=== PATIENT | female | born 1985 | race African-American/Black ===

== ENCOUNTER 2017-05-01 11:02 | Emergency (ER) | payer SELFPAY ==
[2017-05-01 12:06] LABS: #Lymphocytes 1.6 thou/uL (1.20-3.40); #Monocytes 0.6 thou/uL (0.11-0.59); #Neutrophils 8.9 thou/uL (1.40-6.50); %Basophils 0.4 % (0.0-1.0); %Eosinophils 0.1 % (0.0-10.0); %Lymphocytes 14.2 % (21.0-51.0); Hematocrit 49.7 % (36.0-47.0); White Blood Cell (WBC) Count 11.1 thou/uL (4.8-10.8)
[2017-05-01 12:19] LABS: ALT (SGPT) 22 U/L (8-55); AST (SGOT) 20 U/L (5-34); Alkaline Phosphatase 91 U/L (40-150); Anion Gap 18 mmol/L (10-20); BUN (Urea Nitrogen) 9 mg/dL (7.0-18.7); Bilirubin, Total 0.6 mg/dL (0.2-1.2); Calc. Creatinine Clearance 0 mL/min (70-130); Calcium 9.9 mg/dL (7.8-10.44); Carbon Dioxide 20 mmol/L (22-29); Chloride 100 mmol/L (98-107); Estimated GFR-MDRD 90; Globulin 4.4 g/dL (2.4-3.5); Lipase 12 U/L (8-78); Protein, Total 9.2 g/dL (6.0-8.3)
[2017-05-01] MEDS ORDERED: Pantoprazole 40 MG VIAL ONE (12:44)
[2017-05-01] MEDS ORDERED: Ondansetron HCl/PF 4 MG/2 ML Vial ONE (12:45)
[2017-05-01 12:54] LABS: Bilirubin Small (Negative); Blood, Urine Moderate (Negative); Glucose, Urine (Dipstick) Negative (Negative); Ketone, Urine 40 mg/dL (Negative); Nitrite Negative (Negative); Protein, Urine (Dipstick) 300 mg/dL (Neg-Trace); Urobilinogen 0.2 mg/dL (0.2-1.0)
[2017-05-01 12:56] LABS: Bacteria/HPF 1+ HPF (None Seen); Squamous Epithelial 21-50 HPF (0-3); WBC/HPF 21-50 HPF (0-3)
[2017-05-01 13:15] LABS: Hyaline Casts/LPF 0-3 HYALINE CAST LPF (0-3 Hyaline); Sperm/HPF 1+ HPF (None Seen)
[2017-05-01] MEDS ORDERED: Lidocaine 2% Viscous Solution 20 ML, Aluminum & Magnesium Hydroxide 30 ML, Donnatal Eli... SSW SCH ×3 (15:00)
== END 2017-05-01 15:21 | disposition home or self-care (01) ==
LOC: ERS 11:02
DX: K92.2 Gastrointestinal hemorrhage, unspecified (principal); K21.9 Gastro-esophageal reflux disease without esophagitis; I10 Essential (primary) hypertension; F31.9 Bipolar disorder, unspecified; F41.9 Anxiety disorder, unspecified; F20.9 Schizophrenia, unspecified; F17.210 Nicotine dependence, cigarettes, uncomplicated
CPT/HCPCS: 36415; 80053; 81003; 81015; 81025; 83690; 85025; 96361; 96374; 96375; C9113; J2405

== ENCOUNTER 2017-05-31 08:53 | Emergency (ER) | payer SELFPAY ==
[2017-05-31] MEDS ORDERED: Morphine 4 MG/ML VIAL ONE (09:42)
[2017-05-31] MEDS ORDERED: Labetalol HCl 100 MG/20 ML VIAL ONE (09:43)
[2017-05-31 09:58] LABS: #Basophils 0.1 thou/uL (0.0-0.2); #Eosinphils 0.1 thou/uL (0.0-0.7); #Lymphocytes 2.3 thou/uL (1.20-3.40); #Monocytes 0.6 thou/uL (0.11-0.59); #Neutrophils 6.5 thou/uL (1.40-6.50); %Basophils 1.3 % (0.0-1.0); %Eosinophils 0.5 % (0.0-10.0); %Lymphocytes 23.6 % (21.0-51.0); %Monocytes 5.9 % (0.0-10.0); Hematocrit 52.8 % (36.0-47.0); Mean Platelet Volume 9.2 fL (7.4-10.4); Red Blood Cell (RBC) Count 5.77 mill/uL (4.20-5.40); White Blood Cell (WBC) Count 9.5 thou/uL (4.8-10.8)
[2017-05-31 10:36] LABS: ALT (SGPT) 15 U/L (8-55); AST (SGOT) 16 U/L (5-34); Alkaline Phosphatase 70 U/L (40-150); BUN (Urea Nitrogen) 13 mg/dL (7.0-18.7); Bilirubin, Total 0.5 mg/dL (0.2-1.2); CK (CPK) 223 U/L (29-168); Calc. Creatinine Clearance 0 mL/min (70-130); Calcium 9.6 mg/dL (7.8-10.44); Carbon Dioxide 20 mmol/L (22-29); Chloride 103 mmol/L (98-107); Estimated GFR-MDRD 86; Globulin 3.8 g/dL (2.4-3.5); Lipase 7 U/L (8-78); Protein, Total 8.1 g/dL (6.0-8.3); Troponin I Less than 0.010 ng/mL (< 0.028)
[2017-05-31] MEDS ORDERED: Ondansetron HCl/PF 4 MG/2 ML Vial ONE (10:40)
--- NOTE | 2017-05-31 10:44 | RAD ---
PORTABLE CHEST: History: Nausea, vomiting. FINDINGS: Lungs are clear. Heart and mediastinum unremarkable. IMPRESSION: No acute abnormality. POS: [facility]
[2017-05-31 10:49] LABS: Anion Gap 18 mmol/L (10-20)
== END 2017-05-31 13:52 | disposition home or self-care (01) ==
LOC: ERS 08:53
DX: R11.2 Nausea with vomiting, unspecified (principal); I10 Essential (primary) hypertension; K21.9 Gastro-esophageal reflux disease without esophagitis; F41.9 Anxiety disorder, unspecified; F31.9 Bipolar disorder, unspecified; F20.9 Schizophrenia, unspecified; F17.210 Nicotine dependence, cigarettes, uncomplicated
CPT/HCPCS: 36415; 71010; 80053; 82553; 83690; 84484; 84703; 85025; 93005; 94760; 96361; 96374; 96375; J2270; J2405

== ENCOUNTER 2017-08-07 11:00 | Emergency (ER) | payer SELFPAY ==
[2017-08-07 11:43] LABS: Bilirubin Negative (Negative); Blood, Urine Trace (Negative); Clarity CLOUDY (Clear); Glucose, Urine (Dipstick) Negative (Negative); Leukocyte Moderate (Negative); Nitrite Negative (Negative); Protein, Urine (Dipstick) 30 mg/dL (Neg-Trace); Specific Gravity, Urine 1.022 (1.002-1.036)
[2017-08-07 11:45] LABS: Bacteria/HPF Rare-Few HPF (None Seen); Hyaline Casts/LPF 7-10 HYALINE CAST LPF (0-3 Hyaline); RBC/HPF 0-3 HPF (0-3); WBC/HPF 21-50 HPF (0-3)
[2017-08-07 11:47] LABS: Pathc Cast-AUWi Flag 2.57 (0-2.49); Pregnancy Test - Urine (BHCG) Negative (Negative); Pregu Control Background? CLEAR/WHITE (CLR/WHITE); Pregu Control Bar Appear? YES (CONTROL BAR); Specific Gravity 1.022 (1.002-1.036); Yeast-AUWi Flag 25.7 (0-25.0)
[2017-08-07 11:56] LABS: Yeast-All Forms None Seen HPF (None Seen)
[2017-08-07 11:57] LABS: Manual Microscopic Reviewed? No Path Casts Seen
[2017-08-07 12:02] LABS: #Basophils 0.1 thou/uL (0.0-0.2); #Lymphocytes 1.9 thou/uL (1.20-3.40); #Monocytes 0.5 thou/uL (0.11-0.59); #Neutrophils 7.3 thou/uL (1.40-6.50); %Basophils 0.6 % (0.0-1.0); %Eosinophils 0.1 % (0.0-10.0); %Lymphocytes 19.5 % (21.0-51.0); %Monocytes 4.9 % (0.0-10.0); %Neutrophils 74.9 % (42.0-75.0); Hemoglobin 16.8 g/dL (12.0-16.0); Lymphocytes 23 % (21-51); MDiff Complete? YES; Mean Corpuscular HGB CONC 31.9 g/dL (32.0-36.0); Mean Platelet Volume 8.8 fL (7.4-10.4); Monocytes 1 % (0-10); Neutrophil 76 % (42-75); Platelet Count 170 thou/uL (130-400); RBC Distribution Width 13.5 % (11.5-14.5); RBC Morphology Normal; Red Blood Cell (RBC) Count 5.77 mill/uL (4.20-5.40); White Blood Cell (WBC) Count 9.8 thou/uL (4.8-10.8)
[2017-08-07 12:09] LABS: ALT (SGPT) 12 U/L (8-55); AST (SGOT) 16 U/L (5-34); Albumin 4.8 g/dL (3.5-5.0); Alkaline Phosphatase 79 U/L (40-150); Anion Gap 12 mmol/L (10-20); BUN (Urea Nitrogen) 15 mg/dL (7.0-18.7); Bilirubin, Total 0.7 mg/dL (0.2-1.2); Calc. Creatinine Clearance 0 mL/min (70-130); Calcium 10.2 mg/dL (7.8-10.44); Carbon Dioxide 23 mmol/L (22-29); Chloride 99 mmol/L (98-107); Estimated GFR-MDRD 73; Globulin 4.2 g/dL (2.4-3.5); Glucose 104 mg/dL (70-105); Lipase 18 U/L (8-78); Potassium 3.6 mmol/L (3.5-5.1); Sodium 130 mmol/L (136-145)
--- NOTE | 2017-08-07 14:05 | ULT ---
ULTRASOUND ABDOMEN LIMITED: (RIGHT UPPER QUADRANT) HISTORY: A 31-year-old female with right upper quadrant abdominal pain. FINDINGS: The gallbladder has normal wall thickness and has no evidence of gallstones or sludge. The hepatic e chogenicity is normal. The right kidney has normal echogenicity and has no hydronephrosis. The panc reas is visualized, although ultrasound is relatively insensitive for pancreatic pathology compared t o CT and MRI. There is no biliary dilation. The common duct caliber is 4 mm. IMPRESSION: Normal. deandre [] POS: [facility]
[2017-08-07] MEDS ORDERED: Lidocaine Viscous Sol 2% 15 ml UD Cup ONE (14:48)
[2017-08-07] MEDS ORDERED: Mag-Al 1200 mg/1200 mg/30 ML UDCUP ONE (14:48)
--- NOTE | 2017-08-23 15:12 | EKG ---
Test Reason : Blood Pressure : / mmHG Vent. Rate : 069 BPM Atrial Rate : 069 BPM P-R Int : 132 ms QRS Dur : 084 ms QT Int : 416 ms P-R-T Axes : 044 078 067 degrees QTc Int : 445 ms Normal sinus rhythm Normal ECG Confirmed by STACY DE LA TORRE ([id number]), editorial director ROHAN JACOBSON ([id number]) on 08/23/2017 3:12:20 PM Referred By: BRITT Confirmed By:STACY DE LA TORRE
== END 2017-08-07 14:56 | disposition home or self-care (01) ==
LOC: ERS 11:00
DX: R10.13 Epigastric pain (principal); F41.9 Anxiety disorder, unspecified; F31.9 Bipolar disorder, unspecified; F20.9 Schizophrenia, unspecified; F17.210 Nicotine dependence, cigarettes, uncomplicated; I10 Essential (primary) hypertension; K21.9 Gastro-esophageal reflux disease without esophagitis; Z79.899 Other long term (current) drug therapy
CPT/HCPCS: 36415; 76705; 80053; 81003; 81015; 81025; 83690; 85025; 93005; 96372

== ENCOUNTER 2017-08-29 19:58 | Emergency (ER) | payer SELFPAY ==
[2017-08-29 20:46] LABS: #Basophils 0.1 thou/uL (0.0-0.2); #Monocytes 1.7 thou/uL (0.11-0.59); #Neutrophils 9.5 thou/uL (1.40-6.50); %Basophils 0.8 % (0.0-1.0); %Eosinophils 0.2 % (0.0-10.0); %Lymphocytes 20.9 % (21.0-51.0); %Monocytes 11.7 % (0.0-10.0); %Neutrophils 66.4 % (42.0-75.0); Hemoglobin 16.4 g/dL (12.0-16.0); Mean Corpuscular HGB CONC 33.2 g/dL (32.0-36.0); Mean Corpuscular Hemoglobin 29.5 pg (27.0-31.0); Mean Corpuscular Volume 88.9 fl (81.0-99.0); Mean Platelet Volume 8.1 fL (7.4-10.4); Platelet Count 170 thou/uL (130-400); RBC Distribution Width 13.1 % (11.5-14.5); Red Blood Cell (RBC) Count 5.58 mill/uL (4.20-5.40); White Blood Cell (WBC) Count 14.3 thou/uL (4.8-10.8)
[2017-08-29 21:09] LABS: ALT (SGPT) 11 U/L (8-55); AST (SGOT) 13 U/L (5-34); Albumin 4.4 g/dL (3.5-5.0); Alkaline Phosphatase 74 U/L (40-150); Anion Gap 17 mmol/L (10-20); BUN (Urea Nitrogen) 7 mg/dL (7.0-18.7); Bilirubin, Total 0.7 mg/dL (0.2-1.2); Calc. Creatinine Clearance 0 mL/min (70-130); Calcium 10.3 mg/dL (7.8-10.44); Carbon Dioxide 20 mmol/L (22-29); Chloride 101 mmol/L (98-107); Estimated GFR-MDRD 75; Glucose 118 mg/dL (70-105); Lipase 13 U/L (8-78); Potassium 3.1 mmol/L (3.5-5.1); Protein, Total 8.4 g/dL (6.0-8.3); Sodium 135 mmol/L (136-145)
[2017-08-29 22:56] LABS: INR-International Normal Ratio 1.1
[2017-08-29 22:58] LABS: BHCG - Serum Negative (NEGATIVE); Pregs Control Background? CLEAR/WHITE (CLR/WHITE); Pregs Control Bar Appear? YES (CONTROL BAR)
[2017-08-29] MEDS ORDERED: cloNIDine 0.1 MG TAB ONE (23:49)
[2017-08-29] MEDS ORDERED: Ondansetron ODT 8 MG TAB ONE (23:49)
[2017-08-30] MEDS ORDERED: Potassium Chloride 20 MEQ TAB ONE (00:42)
[2017-08-30 00:58] LABS: Bilirubin Small (Negative); Blood, Urine Negative (Negative); Clarity TURBID (Clear); Glucose, Urine (Dipstick) Negative (Negative); Leukocyte Small (Negative); Nitrite Negative (Negative); Protein, Urine (Dipstick) 100 mg/dL (Neg-Trace); Specific Gravity, Urine 1.034 (1.002-1.036)
[2017-08-30 01:03] LABS: Bacteria/HPF Rare-Few HPF (None Seen); Squamous Epithelial 21-50 HPF (0-3)
[2017-08-30 01:07] LABS: Pathc Cast-AUWi Flag 14.63 (0-2.49); Yeast-AUWi Flag 38.2 (0-25.0)
[2017-08-30 01:11] LABS: Hyaline Casts/LPF NONE SEEN LPF (0-3 Hyaline); Yeast-All Forms None Seen HPF (None Seen)
[2017-08-30 01:12] LABS: Other Casts/LPF None Seen LPF (0-3 Hyaline); Renal Epithelial None Seen HPF (0-3); Transitional Epithelial NONE SEEN HPF (0-3)
== END 2017-08-30 01:10 | disposition home or self-care (01) ==
LOC: ERS 19:58
DX: E87.6 Hypokalemia (principal); K59.00 Constipation, unspecified; K21.9 Gastro-esophageal reflux disease without esophagitis; I10 Essential (primary) hypertension; F31.9 Bipolar disorder, unspecified; F20.9 Schizophrenia, unspecified; F17.210 Nicotine dependence, cigarettes, uncomplicated; Z79.899 Other long term (current) drug therapy
CPT/HCPCS: 36415; 80053; 81003; 81015; 83690; 84703; 85025; 85610; 99406

== ENCOUNTER 2017-11-19 11:32 | Emergency (ER) | payer SELFPAY ==
[2017-11-19 12:09] LABS: #Basophils 0.1 thou/uL (0.0-0.2); #Lymphocytes 1.6 thou/uL (1.20-3.40); #Monocytes 0.5 thou/uL (0.11-0.59); #Neutrophils 6.8 thou/uL (1.40-6.50); %Basophils 1.1 % (0.0-1.0); %Eosinophils 0.1 % (0.0-10.0); %Lymphocytes 17.9 % (21.0-51.0); %Monocytes 5.2 % (0.0-10.0); %Neutrophils 75.6 % (42.0-75.0); Hemoglobin 16.1 g/dL (12.0-16.0); Mean Corpuscular HGB CONC 31.4 g/dL (32.0-36.0); Mean Corpuscular Hemoglobin 28.8 pg (27.0-31.0); Mean Corpuscular Volume 91.7 fl (81.0-99.0); Mean Platelet Volume 8.1 fL (7.4-10.4); Platelet Count 154 thou/uL (130-400); RBC Distribution Width 12.3 % (11.5-14.5)
[2017-11-19] MEDS ORDERED: Promethazine HCl 25 MG/ML VIAL ONE ×2 (12:29→14:54)
[2017-11-19 12:32] LABS: BHCG - Serum Negative (NEGATIVE); Pregs Control Background? CLEAR/WHITE (CLR/WHITE); Pregs Control Bar Appear? YES (CONTROL BAR)
[2017-11-19 12:37] LABS: ALT (SGPT) 13 U/L (8-55); AST (SGOT) 16 U/L (5-34); Alkaline Phosphatase 72 U/L (40-150); Anion Gap 16 mmol/L (10-20); BUN (Urea Nitrogen) 9 mg/dL (7.0-18.7); Bilirubin, Total 0.6 mg/dL (0.2-1.2); Calc. Creatinine Clearance 0 mL/min (70-130); Calcium 9.9 mg/dL (7.8-10.44); Carbon Dioxide 19 mmol/L (22-29); Chloride 105 mmol/L (98-107); Estimated GFR-MDRD 80; Globulin 3.9 g/dL (2.4-3.5); Glucose 123 mg/dL (70-105); Lipase 17 U/L (8-78); Potassium 3.3 mmol/L (3.5-5.1); Protein, Total 8.9 g/dL (6.0-8.3); Sodium 137 mmol/L (136-145)
[2017-11-19 12:48] LABS: CKMB 1.1 ng/mL (0-6.6); Troponin I 0.014 ng/mL (< 0.028)
[2017-11-19 13:11] LABS: Bilirubin Negative (Negative); Blood, Urine Negative (Negative); Clarity TURBID (Clear); Glucose, Urine (Dipstick) Negative (Negative); Leukocyte Negative (Negative); Nitrite Negative (Negative); Protein, Urine (Dipstick) 100 mg/dL (Neg-Trace); Specific Gravity, Urine 1.015 (1.002-1.036)
[2017-11-19 13:12] LABS: Bacteria/HPF Rare-Few HPF (None Seen); Hyaline Casts/LPF 4-6 HYALINE CAST LPF (0-3 Hyaline); Pathc Cast-AUWi Flag 0.14 (0-2.49); RBC/HPF 0-3 HPF (0-3)
[2017-11-19 13:28] LABS: Amphetamine Not Detected (NotDetected); Barbiturates Screen Not Detected (NotDetected); Benzodiazepine Screen Not Detected (NotDetected); Cocaine Metabolite Screen Not Detected (NotDetected); Medtox Control Line Valid? VALID (VALID); Medtox Reader # READER 4; Methadone Not Detected (NotDetected); Methamphetamine Not Detected (NotDetected); Opiate Screen Not Detected (NotDetected); Oxycodone Screen Not Detected (NotDetected); Phencyclidine (PCP) Not Detected (NotDetected); THC/Cannabinoid Screen Not Detected (NotDetected); Tricyclic Screen Not Detected (NotDetected)
[2017-11-19 13:32] LABS: Crystals/HPF 2+ AMORPH PHOS HPF (Negative); Renal Epithelial None Seen HPF (0-3); Transitional Epithelial NONE SEEN HPF (0-3); WBC/HPF 0-3 HPF (0-3)
--- NOTE | 2017-11-19 13:52 | RAD ---
PORTABLE CHEST: Date: 11/19/17 HISTORY: Nausea and vomiting. FINDINGS: Lungs are clear. Heart and mediastinum unremarkable. IMPRESSION: No acute abnormality. POS: [facility]
[2017-11-19] MEDS ORDERED: Mag-Al 1200 mg/1200 mg/30 ML UDCUP ONE (14:54)
[2017-11-19] MEDS ORDERED: Ondansetron ODT 8 MG TAB ONE (14:54)
[2017-11-19] MEDS ORDERED: Lidocaine Viscous Sol 2% 15 ml UD Cup ONE (14:54)
== END 2017-11-19 16:47 | disposition home or self-care (01) ==
LOC: ERS 11:32
DX: E86.0 Dehydration (principal); R53.1 Weakness; R11.2 Nausea with vomiting, unspecified; I11.0 Hypertensive heart disease with heart failure; I50.9 Heart failure, unspecified; K21.9 Gastro-esophageal reflux disease without esophagitis; F17.210 Nicotine dependence, cigarettes, uncomplicated; Z79.899 Other long term (current) drug therapy
CPT/HCPCS: 36415; 71045; 80053; 80306; 81003; 81015; 82550; 82553; 83690; 83880; 84484; 84703; 85025; 86850; 86900; 86901; 93005; 96365; 96366; J2550

== ENCOUNTER 2017-12-07 23:13 | Inpatient (IN) | payer SELFPAY ==
[2017-12-07 23:29] LABS: #Basophils 0.1 thou/uL (0.0-0.2); #Eosinphils 0.2 thou/uL (0.0-0.7); #Lymphocytes 3.8 thou/uL (1.20-3.40); #Monocytes 0.7 thou/uL (0.11-0.59); #Neutrophils 3.2 thou/uL (1.40-6.50); %Basophils 1.2 % (0.0-1.0); %Eosinophils 2.2 % (0.0-10.0); %Lymphocytes 46.9 % (21.0-51.0); %Monocytes 9.1 % (0.0-10.0); %Neutrophils 40.5 % (42.0-75.0); Hemoglobin 15.1 g/dL (12.0-16.0); Mean Corpuscular HGB CONC 33.7 g/dL (32.0-36.0); Mean Corpuscular Hemoglobin 30.1 pg (27.0-31.0); Mean Corpuscular Volume 89.3 fL (78.0-98.0); Mean Platelet Volume 7.6 fL (7.4-10.4); Platelet Count 201 thou/uL (130-400); Red Blood Cell (RBC) Count 5.01 mill/uL (4.20-5.40)
[2017-12-07] MEDS ORDERED: Lidocaine Viscous Sol 2% 15 ml UD Cup ONE (23:39)
[2017-12-07] MEDS ORDERED: Milk Of Magnesia 30 ML UDCUP ONE (23:39)
[2017-12-07] MEDS ORDERED: Ondansetron ODT 4 MG TAB ONE (23:39)
[2017-12-07 23:50] LABS: ALT (SGPT) 12 U/L (8-55); AST (SGOT) 16 U/L (5-34); Albumin 4.8 g/dL (3.5-5.0); Alkaline Phosphatase 62 U/L (40-150); Anion Gap 15 mmol/L (10-20); BUN (Urea Nitrogen) 9 mg/dL (7.0-18.7); Bilirubin, Total 0.4 mg/dL (0.2-1.2); Calc. Creatinine Clearance 0 mL/min (70-130); Carbon Dioxide 22 mmol/L (22-29); Chloride 108 mmol/L (98-107); Estimated GFR-MDRD 68; Globulin 3.8 g/dL (2.4-3.5); Glucose 117 mg/dL (70-105); Protein, Total 8.6 g/dL (6.0-8.3); Sodium 142 mmol/L (136-145)
[2017-12-08] MEDS ORDERED: Promethazine HCl 25 MG/ML VIAL ONE (00:12)
[2017-12-08 00:15] LABS: Potassium 2.9 mmol/L (3.5-5.1)
[2017-12-08 01:12] LABS: Bilirubin Negative (Negative); Blood, Urine Large (Negative); Clarity CLEAR (Clear); Glucose, Urine (Dipstick) Negative (Negative); Leukocyte Negative (Negative); Nitrite Negative (Negative); Pregnancy Test - Urine (BHCG) Negative (Negative); Pregu Control Background? CLEAR/WHITE (CLR/WHITE); Pregu Control Bar Appear? YES (CONTROL BAR); Protein, Urine (Dipstick) Trace mg/dL (Neg-Trace); pH, Urine 7.5 (5.0-9.0)
[2017-12-08 01:16] LABS: Bacteria/HPF None Seen HPF (None Seen); Pathc Cast-AUWi Flag 0.72 (0-2.49); WBC/HPF 0-3 HPF (0-3)
[2017-12-08 01:26] LABS: Hyaline Casts/LPF NONE SEEN LPF (0-3 Hyaline); Renal Epithelial None Seen HPF (0-3); Transitional Epithelial NONE SEEN HPF (0-3)
[2017-12-08 02:05] LABS: Acetaminophen Less than 6.0 mcg/mL (10.0-30.0); Alcohol Less than 10 mg/dL (Less than 10); Salicylate Less than 8.0 mg/dL (15.0-30.0)
--- NOTE | 2017-12-08 02:23 | PDOC.FPRHP ---
- History of Present Illness Chief Complaint: N/V History of Present Illness: This i s a 31 yo AAF w/ PMH HTN, drug use, Pre-eclampsia, presents w/ N/V that started today. + abdominal pain that started after vomiting. + chills. She denies any fevers, changes in BM or urination. Pt refusing to answer more of her history. - Allergies/Adverse Reactions Allergies Allergy/AdvReac Type Severity Reaction Status Date / Time No Known Allergies Allergy Verified 06/23/16 06:47 - Home Medications Medication Instructions Recorded Confirmed Type Aspirin [Aspirin Chewable Tablet] 81 mg PO DAILY #0 tab 03/30/16 11/19/16 Rx Vit 10/Iron/Folic/Dha 1 tablet PO DAILY 03/30/16 11/19/16 History [Vitafol-OB+DHA Combo Pack] Labetalol [Normodyne] 400 mg PO BID 05/18/16 11/19/16 History Acetaminophen W/ Codeine 1 tab PO Q4H PRN #20 tab 06/27/16 11/19/16 Rx [Acetaminophen/Codeine #3] Ferrous Sulfate [Feosol] 325 mg PO BID #60 tab 06/27/16 11/19/16 Rx Hydrochlorothiazide 25 mg PO BID #60 tab 06/27/16 11/19/16 Rx Labetalol [Normodyne] 400 mg PO BID #60 tab 06/27/16 11/19/16 Rx - History PMHx: PSHx: FHx: Social: - Review of Systems General: reports: weight/appetite/sleep changes, other (+ chills, no fever) Eyes: denies: eye pain, vision changes ENT: denies: nasal congestion, rhinorrhea Respiratory: denies: cough, congestion, shortness of breath, exercise intolerance Cardiovascular: denies: chest pain, palpitation Gastrointestinal: reports: nausea, vomiting, abdominal pain, GI bleeding. denies: diarrhea, constipation Genitourinary: denies: dysuria Skin: denies: rashes - Vital signs BP: 178/113 HR: 84 RR: 12 Tmax: 97.5 Pox: 96% on RA Wt: 63kg - Physical Exam Constitutional: NAD, other (Thin, Selectively answering questions) HEENT: normocephalic and atraumatic, PERRLA, EOMI, conjunctiva clear, no scleral icterus, normal nasal mucosa, MMM, oropharynx clear Neck: no JVD Heart: RRR, normal S1/S2, no murmurs/rubs/gallops, no edema Lungs: CTAB, no respiratory distress, good air movement, no rales/rhonchi, no wheezing, no retractions Abdomen: soft, no masses/distention -Abdomen: Pt not allowing me to examine abdomen Musculoskeletal: normal structure, normal tone, ROM grossly normal Neurological: no focal deficit, CN II-XII intact, normal sensation Skin: no rash/lesions -Psychiatric: Pt declining to answer to most questions. Poor eye contact, smells of smoke FMR H&P: Results - Labs Result Diagrams: 12/07/17 23:20 12/07/17 23:20 Lab results: WBC 8.0 thou/uL (4.8-10.8) 12/07/17 23:20 Hgb 15.1 g/dL (12.0-16.0) 12/07/17 23:20 Hct 44.7 % (36.0-47.0) 12/07/17 23:20 MCV 89.3 fL (78.0-98.0) 12/07/17 23:20 Plt Count 201 thou/uL (130-400) 12/07/17 23:20 Neutrophils % 40.5 % (42.0-75.0) L 12/07/17 23:20 Sodium 142 mmol/L (136-145) 12/07/17 23:20 Potassium 2.9 mmol/L (3.5-5.1) L* 12/07/17 23:20 Chloride 108 mmol/L (98-107) H 12/07/17 23:20 Carbon Dioxide 22 mmol/L (22-29) 12/07/17 23:20 BUN 9 mg/dL (7.0-18.7) 12/07/17 23:20 Creatinine 1.13 mg/dL (0.6-1.1) H 12/07/17 23:20 Glucose 117 mg/dL (70-105) H 12/07/17 23:20 Calcium 10.0 mg/dL (7.8-10.44) 12/07/17 23:20 Total Bilirubin 0.4 mg/dL (0.2-1.2) 12/07/17 23:20 AST 16 U/L (5-34) 12/07/17 23:20 ALT 12 U/L (8-55) 12/07/17 23:20 Alkaline Phosphatase 62 U/L (40-150) 12/07/17 23:20 Serum Total Protein 8.6 g/dL (6.0-8.3) H 12/07/17 23:20 Albumin 4.8 g/dL (3.5-5.0) 12/07/17 23:20 Lipase 17 U/L (8-78) 12/07/17 23:20 Urine Ketones Trace mg/dL (Negative) H 12/08/17 01:00 Urine Blood Large (Negative) H 12/08/17 01:00 Urine Nitrite Negative (Negative) 12/08/17 01:00 Ur Leukocyte Esterase Negative (Negative) 12/08/17 01:00 Urine RBC 7-10 HPF (0-3) H 12/08/17 01:00 Urine WBC 0-3 HPF (0-3) 12/08/17 01:00 Ur Squamous Epith Cells 4-6 HPF (0-3) H 12/08/17 01:00 Urine Bacteria None Seen HPF (None Seen) 12/08/17 01:00 - Radiology Interpretation CT scan - abdomen Status: report reviewed by me (Can't exclude mild bronchiolitis. Small hiatal hernia and mild wall thickening in distal esopahgus. 2cm R ovarin cyst) FMR H&P: A/P - Problem List (1) SHANNAN (acute kidney injury) Current Visit: No Status: Acute Code(s): N17.9 - ACUTE KIDNEY FAILURE, UNSPECIFIED Assessment and Plan: Fluids. F/u with BMP in am. (2) Hypertensive urgency Current Visit: No Status: Acute Code(s): I10 - ESSENTIAL (PRIMARY) HYPERTENSION Assessment and Plan: Pt has hx of HTN. Will check UDS and add hydralazine PRN. If UDS will restart home medications. Will check TSH. (3) Hypokalemia Current Visit: No Status: Acute Code(s): E87.6 - HYPOKALEMIA Assessment and Plan: S/p K-dur in ER. Will start fluids with Potassium. Will also check Mag. F/u with repeat K in am. (4) Medical non-compliance Current Visit: No Status: Chronic Code(s): Z91.19 - PATIENT'S NONCOMPLIANCE W OTH MEDICAL TREATMENT AND REGIMEN (5) Tobacco abuse Current Visit: No Status: Chronic Code(s): Z72.0 - TOBACCO USE Assessment and Plan: Counselled on cessation. (6) Intractable nausea and vomiting Current Visit: Yes Status: Acute Code(s): R11.2 - NAUSEA WITH VOMITING, UNSPECIFIED Assessment and Plan: Zofran PRN. Fluids. NPO. Will check UA and cx. Start PPI and consider GI cocktail. (7) Ovarian cyst Current Visit: Yes Status: Chronic Code(s): N83.209 - UNSPECIFIED OVARIAN CYST, UNSPECIFIED SIDE Assessment and Plan: Incidently found on CT scan. F/u outpatient FMR H&P: Upper Level - Plan Date/Time: 12/08/17 0220 I, [], have evaluated this patient and agree with findings/plan as outlined by international sales representative resident. Pertinent changes/additions are listed here.
[2017-12-08] MEDS ORDERED: D5 1/2 NS w/20 mEq KCL 1,000 ML IV SCH ×2 (03:15→04:37)
[2017-12-08] MEDS ORDERED: hydrALAZINE 20 MG/ML VIAL SLOW IVP PRN (04:37)
[2017-12-08] MEDS ORDERED: Promethazine HCl 25 MG/ML VIAL SLOW IVP PRN (04:37)
[2017-12-08] MEDS ORDERED: Ondansetron ODT 4 MG TAB PO PRN (04:37)
[2017-12-08] MEDS ORDERED: Ondansetron HCl/PF 4 MG/2 ML Vial IVP PRN ×2 (04:37)
[2017-12-08] MEDS ORDERED: Ondansetron ODT 4 MG TAB SL PRN (04:37)
[2017-12-08 04:55] VITALS: BMI 22.0
[2017-12-08 05:20] LABS: Amphetamine Detected (NotDetected); Barbiturates Screen Not Detected (NotDetected); Benzodiazepine Screen Not Detected (NotDetected); Cocaine Metabolite Screen Not Detected (NotDetected); Medtox Control Line Valid? VALID (VALID); Medtox Reader # READER 1; Methadone Not Detected (NotDetected); Methamphetamine Not Detected (NotDetected); Opiate Screen Not Detected (NotDetected); Oxycodone Screen Not Detected (NotDetected); Phencyclidine (PCP) Not Detected (NotDetected); THC/Cannabinoid Screen Not Detected (NotDetected); Tricyclic Screen Not Detected (NotDetected)
[2017-12-08] MEDS ORDERED: Potassium Chloride 20 MEQ TAB PO SCH ×2 (08:00)
[2017-12-08] MEDS ORDERED: Pantoprazole 40 MG VIAL IVP SCH (09:00)
[2017-12-08] MEDS ORDERED: Hydrochlorothiazide 25 MG TAB PO SCH (09:00)
--- NOTE | 2017-12-08 09:13 | CT ---
PRELIMINARY REPORT/[facility]/EMERGENTY AFTER-HOURS PROCEDURE CT Abdomen and Pelvis With Intravenous Contrast CLINICAL HISTORY: 31 years old, female; Pain; Abdominal pain; Generalized; Patient HX: 31/f PT presents with complaint of nausea, vomiting, and epigastric abdominal pain starting earlier tonight. No fever, body aches, ch ills, diarrhea, chest pain, or shortness of breath. States this feels like her prior episodes of reflux. Was in the er recently for same complaint TECHNIQUE: Axial computed tomography images of the abdomen and pelvis with intravenous contrast. Coronal reforma tted images were created and reviewed. COMPARISON: No relevant prior studies available. FINDINGS: Lower thorax: There may be subtle tree in bud opacities of the left lower lobe, cannot exclude mild b ronchiolitis. There is a small hiatal hernia and there is mild wall thickening in the distal esophagu s, cannot exclude distal esophagitis. ABDOMEN: Liver: There is mild hepatomegaly. Gallbladder and bile ducts: Normal. No calcified stones. No ductal dilation. Pancreas: Normal. No ductal dilation. Spleen: Normal. No splenomegaly. Adrenals: Normal. No mass. Kidneys and ureters: Normal. No hydronephrosis. Stomach and bowel: Normal. No obstruction. No mucosal thickening. Appendix: The appendix is unremarkable and seen best on axial image 54 of series 2. PELVIS: Bladder: Unremarkable as visualized. Reproductive: There is a 2.0 cm right ovarian cyst. ABDOMEN and PELVIS: Intraperitoneal space: Normal. No free air. No significant fluid collection. Bones/joints: No acute fracture. No dislocation. Soft tissues: Unremarkable. Vasculature: Normal. No abdominal aortic aneurysm. Lymph nodes: Normal. No enlarged lymph nodes. IMPRESSION: 1. There may be subtle tree in bud opacities of the left lower lobe, cannot exclude mild bronchioliti s. 2. There is a small hiatal hernia and there is mild wall thickening in the distal esophagus, cannot e xclude distal esophagitis. 3. There is a 2.0 cm right ovarian cyst. Thank you for allowing us to participate in the care of your patient. Dictated and Authenticated by: Marcial Stone MD 12/08/2017 1:24 AM Central Time ([place] & [place]) FINAL REPORT EMERGENT AFTER HOURS CT ABDOMEN AND PELVIS: COMPARISON: 06/25/16. FINDINGS/IMPRESSION: I agree with the findings and impression given in the preliminary report per [facility] physician. 1. No evidence of acute intraabdominal/pelvic abnormality. 2. There may be a small hiatal hernia. 3. There is a tampon in the vagina. A right ovarian cyst is seen which is likely physiologic. 4. The tree-in-bud opacities mentioned in the right lower lobe are very subtle and stable and likely represent scarring rather than an infectious process. POS: [facility]
[2017-12-08] MEDS ORDERED: Amlodipine 5 MG TAB PO SCH ×2 (10:27→10:45)
[2017-12-08 11:39] VITALS: BP 154/90; TEMP 98.9
[2017-12-08] MEDS ORDERED: Calcium Carbonate 500 MG ChewTAB PO PRN (12:11)
[2017-12-08 12:16] LABS: Anion Gap 17 mmol/L (10-20); BUN (Urea Nitrogen) 7 mg/dL (7.0-18.7); Calc. Creatinine Clearance 84 mL/min (70-130); Calcium 9.6 mg/dL (7.8-10.44); Carbon Dioxide 20 mmol/L (22-29); Chloride 106 mmol/L (98-107); Estimated GFR-MDRD 89; Glucose 121 mg/dL (70-105); Potassium 3.6 mmol/L (3.5-5.1); Sodium 139 mmol/L (136-145)
[2017-12-09] MEDS ORDERED: Amlodipine 5 MG TAB PO SCH (09:00)
[2017-12-09] MEDS ORDERED: Hydrochlorothiazide 25 MG TAB PO SCH (09:00)
--- NOTE | 2017-12-09 17:56 | ADD-HP ---
ADDENDUM Please see the note from Dr. Munguia for which I agree. The patient was seen and examined and discussed with the residents by bedside. HISTORY OF PRESENT ILLNESS: A 31-year-old female apparently well known to this serv ice with history of hypertension, drug use, and just medical noncompliance, who came in with nausea, vomiting, intractable and blood pressure urgently high. Initial ER visit controlled her blood pressu re and was noted to be hypokalemic. CT was done and was basically normal. LABORATORY AND X-RAY FINDINGS: Initial blood workup significant for the low potassium 2.9. Urine dr ug screen positive for amphetamines. PAST MEDICAL HISTORY: All per the history and physical for which I concur. PAST SURGICAL HISTORY: All per the history and physical for which I concur. MEDICATIONS: All per the history and physical for which I concur. SOCIAL HISTORY: All per the history and physical for which I concur. REVIEW OF SYSTEMS: All per the history and physical for which I concur. PHYSICAL EXAMINATION: VITAL SIGNS: Blood pressure has come down 142/85. GENERAL: No distress in the room, pleasant. States she feels better. Alert and oriented x3. ENT: Otherwise within normal limits. NECK: No JVD, lymphadenopathy, or bruits. CHEST: Clear. CARDIOVASCULAR: Regular rate and rhythm. ABDOMEN: Benign. EXTREMITIES: Show no edema. LABORATORY DATA: Reviewed. Again same way for the low potassium. ASSESSMENT AND PLAN: 1. Urgent hypertension -- medical noncompliance. We will get her back on medicines. Hopefully, we can choose the one that she will be able to afford and stay on compliantly. 2. Amphetamine abuse, likely obviously counseled. 3. Hypokalemia, , we will recheck basic metabolic panel and see what her levels are showing. 4. Intractable nausea and vomiting, now improved. We will slowly see, put her on proton pump inhibi tor, but likely will be able to be discharged once she keep p.o. fluids down.
--- NOTE | 2017-12-10 03:26 | DIS-2 ---
DATE OF ADMISSION: 12/08/2017 DATE OF DISCHARGE: 12/08/2017 RESIDENT: Julio César Bennett MD ADMITTING ATTENDING: Joe Tovar MD DISCHARGE ATTENDING: Joe Tovar MD CONSULTATION: None. PROCEDURES: CT abdomen and pelvis with contrast showed no acute intra- abdominal or pelvic abnormality. Small hiatal hernia present. Right ovarian cyst, likely physiologic. A subtle, likely scarring in the right lower lobe. PRIMARY DIAGNOSIS: Hypertensive urgency. SECONDARY DIAGNOSES: 1. Intractable nausea and vomiting. 2. Acute kidney injury. 3. Hypokalemia. 4. Amphetamine abuse. 5. Tobacco abuse. 6. Medical noncompliance. DISCHARGE MEDICATIONS: 1. Amlodipine 2.5 mg daily. 2. Protonix 20 mg daily. 3. Potassium chloride 10 mEq daily. 4. Hydrochlorothiazide 25 mg daily. 5. Zofran 4 mg q.6 hours p.r.n. DISCONTINUED MEDICATION: Labetalol 400 mg b.i.d. HISTORY OF PRESENT ILLNESS AND HOSPITAL COURSE: The patient is a 31-year-old -[place] female with past medical history of hypertension, drug abuse, medication noncompliance, and preeclampsia presented with nausea and vomiting, not acutely worsened on the day of presentation to the ED. The patient's history was limited due to lack of cooperation on admission, but she endorsed abdominal pain that started after vomiting along with chills. Denied any fever , changes of bowel movement, or complaints with urination. On further questioning, she endorses chronic nausea with eating and a significant amount of vomiting. She mostly visits ED for management and has not been seen in our clinic since 06/2016. She is not currently taking any of her medications due to being unable to afford. She denied any drug use, but states her roommate was smoking "ice", which was likely affecting her. She was writhing around on the bed during the initial evaluation and very uncomfortable. Next morning, she was much more calm. She was brought in for observation. 1. Hypertensive urgency. The patient had no signs of end-organ damage with mild SHANNAN attributed to more of her overall fluid status with vomiting. UDS was positive for amphetamines. Her blood pressures were improved after the addition of oral agents. The patient was on labetalol and HCTZ, but was last addressed around at the time of . Due to the cost of labetalol, she is unable to afford. She was changed to amlodipine 2.5 mg, which is on the 4- dollar list, as well as continued on HCTZ once daily. 2. Intractable nausea and vomiting. This is likely the patient's biggest chronic issue per history. However, the patient has difficulty affording medications and may also be linked to drug use and/or peptic ulcer disease. GI cocktail was given and a PPI was started. The patient was able to tolerate food without vomiting in the hospital, so she was felt stable for discharge. We will send her home with a script for Zofran and Protonix. The patient is asked to follow up in our clinic. 3. Acute kidney injury, improved with IV fluids. Likely secondary to vomiting. 4. Hypokalemia. The patient was given potassium in the ED and on the floor. Repeat potassium was in a normal range. She was discharged with a script for potassium supplements. 5. Amphetamine abuse. The patient's UDS was positive for amphetamines. The patient endorsed having a roommate, who used methamphetamines around her, but denied personal use. Counseled that drug use can worsen her current symptoms. 6. Tobacco abuse, counseled on cessation. 7. Medical noncompliance. The patient has been difficult to manage at times due to this. Currently, able to afford all of her medications. Blood pressure meds were adjusted with gaines in mind and convenience of dosing. 8. Low TSH. The patient was found to have a low TSH that came back just after the patient was discharged. I contacted her to stress the importance of a followup visit at our clinic to further evaluate. DISPOSITION: Stable. DISCHARGE INSTRUCTIONS: 1. Location: Home. 2. Diet: Heart healthy. 3. Activity: As tolerated. 4. Follow up with [facility] in 3-5 days. JACKELYN
== END 2017-12-08 14:43 | disposition home or self-care (01) | DRG 641 ==
LOC: ERS 23:13 → 2SW 12-08 01:47
PROVIDERS: ADMIT Family Medicine; ATTEND Family Medicine
DX: E87.6 Hypokalemia (principal); N17.9 Acute kidney failure, unspecified; I16.0 Hypertensive urgency; F15.10 Other stimulant abuse, uncomplicated; K44.9 Diaphragmatic hernia without obstruction or gangrene; N83.209 Unspecified ovarian cyst, unspecified side; F17.210 Nicotine dependence, cigarettes, uncomplicated; I10 Essential (primary) hypertension; Z91.14 Patient's other noncompliance with medication regimen; T44.8X6A Underdosing of centrally-acting and adrenergic-neuron-blocking agents, initial encounter; Z91.120 Patient's intentional underdosing of medication regimen due to financial hardship; R94.6 Abnormal results of thyroid function studies; R11.2 Nausea with vomiting, unspecified; F41.9 Anxiety disorder, unspecified; F31.9 Bipolar disorder, unspecified; F20.9 Schizophrenia, unspecified; E86.0 Dehydration
CPT/HCPCS: 36415; 36416; 74177; 80048; 80053; 80306; 80307; 81003; 81015; 81025; 83690; 83735; 84443; 85025; 90471; 90732; 93005; 93010; 96365; 96367; C9113; G0009; J2270; J2550; Q0162

== ENCOUNTER 2017-12-10 18:22 | Emergency (ER) | payer SELFPAY ==
[2017-12-10] MEDS ORDERED: Ondansetron ODT 8 MG TAB ONE ×2 (18:52→21:37)
[2017-12-10 18:59] LABS: Hemoglobin 15.5 g/dL (12.0-16.0); Mean Corpuscular HGB CONC 33.5 g/dL (32.0-36.0); Mean Corpuscular Hemoglobin 29.6 pg (27.0-31.0); Mean Corpuscular Volume 88.3 fL (78.0-98.0); Mean Platelet Volume 8.1 fL (7.4-10.4); Platelet Count 186 thou/uL (130-400); RBC Distribution Width 11.9 % (11.5-14.5); Red Blood Cell (RBC) Count 5.25 mill/uL (4.20-5.40)
[2017-12-10 19:17] LABS: ALT (SGPT) 17 U/L (8-55); AST (SGOT) 15 U/L (5-34); Albumin 4.8 g/dL (3.5-5.0); Alkaline Phosphatase 64 U/L (40-150); Anion Gap 16 mmol/L (10-20); BUN (Urea Nitrogen) 10 mg/dL (7.0-18.7); Bilirubin, Total 0.6 mg/dL (0.2-1.2); Calc. Creatinine Clearance 0 mL/min (70-130); Calcium 10.3 mg/dL (7.8-10.44); Carbon Dioxide 24 mmol/L (22-29); Chloride 103 mmol/L (98-107); Estimated GFR-MDRD 66; Globulin 3.8 g/dL (2.4-3.5); Glucose 113 mg/dL (70-105); Lipase 14 U/L (8-78); Protein, Total 8.6 g/dL (6.0-8.3); Sodium 140 mmol/L (136-145)
[2017-12-10 19:18] LABS: Potassium 2.8 mmol/L (3.5-5.1)
[2017-12-10 19:20] LABS: Lymphocytes 79 % (21-51); MDiff Complete? YES; Monocytes 8 % (0-10); Neutrophil 13 % (42-75); PLT Morphology Comment Appears Adequate
[2017-12-10] MEDS ORDERED: Magnesium Sulfate 2 GM in Sodium Chloride 0.9% 100 ML IVPB SCH (19:45)
[2017-12-10] MEDS ORDERED: D5 1/2 NS w/20 mEq KCL 1,000 ML IV SCH (19:45)
[2017-12-10] MEDS ORDERED: diphenhydrAMINE 50 MG/ML VIAL ONE (20:23)
[2017-12-10] MEDS ORDERED: Haloperidol Lactate 5 MG/ML VIAL ONE (20:23)
[2017-12-10] MEDS ORDERED: Potassium Chloride 20 MEQ TAB ONE (21:36)
== END 2017-12-10 22:46 | disposition home or self-care (01) ==
LOC: ERS 18:22
DX: E86.0 Dehydration (principal); E87.6 Hypokalemia; K21.9 Gastro-esophageal reflux disease without esophagitis; I10 Essential (primary) hypertension; F41.9 Anxiety disorder, unspecified; F31.9 Bipolar disorder, unspecified; F20.9 Schizophrenia, unspecified; F17.210 Nicotine dependence, cigarettes, uncomplicated; Z79.899 Other long term (current) drug therapy
CPT/HCPCS: 80053; 83690; 83735; 85025; 93005; 96365; 96375; J1200; J1630; J3475; J7050

== ENCOUNTER 2017-12-31 06:46 | Observation (INO) | payer SELFPAY ==
[2017-12-31] MEDS ORDERED: diphenhydrAMINE 50 MG/ML VIAL ONE (07:45)
[2017-12-31] MEDS ORDERED: Metoclopramide HCl 10 MG/2 ML VIAL ONE (07:45)
[2017-12-31 07:57] LABS: BHCG - Serum Negative (NEGATIVE); Pregs Control Background? CLEAR/WHITE (CLR/WHITE); Pregs Control Bar Appear? YES (CONTROL BAR)
[2017-12-31 08:03] LABS: Hemoglobin 15.8 g/dL (12.0-16.0); Mean Corpuscular HGB CONC 31.8 g/dL (32.0-36.0); Mean Corpuscular Hemoglobin 29.5 pg (27.0-31.0); Mean Corpuscular Volume 92.8 fL (78.0-98.0); Mean Platelet Volume 7.8 fL (7.4-10.4); Platelet Count 190 thou/uL (130-400); RBC Distribution Width 12.3 % (11.5-14.5); Red Blood Cell (RBC) Count 5.35 mill/uL (4.20-5.40); White Blood Cell (WBC) Count 6.8 thou/uL (4.8-10.8)
[2017-12-31 08:11] LABS: ALT (SGPT) 13 U/L (8-55); AST (SGOT) 16 U/L (5-34); Albumin 4.8 g/dL (3.5-5.0); Alkaline Phosphatase 68 U/L (40-150); Anion Gap 16 mmol/L (10-20); BUN (Urea Nitrogen) 11 mg/dL (7.0-18.7); Bilirubin, Total 0.4 mg/dL (0.2-1.2); Calc. Creatinine Clearance 0 mL/min (70-130); Calcium 9.7 mg/dL (7.8-10.44); Carbon Dioxide 20 mmol/L (22-29); Chloride 106 mmol/L (98-107); Estimated GFR-MDRD 87; Globulin 3.6 g/dL (2.4-3.5); Glucose 130 mg/dL (70-105); Potassium 3.5 mmol/L (3.5-5.1); Protein, Total 8.4 g/dL (6.0-8.3); Sodium 138 mmol/L (136-145)
[2017-12-31 08:21] LABS: Band 1 % (5-11); Eosinophils 1 % (0-10); Lymphocytes 40 % (21-51); MDiff Complete? YES; Monocytes 1 % (0-10); Neutrophil 57 % (42-75); RBC Morphology Normal
[2017-12-31] MEDS ORDERED: hydrALAZINE 20 MG/ML VIAL ONE ×2 (09:43→10:54)
[2017-12-31] MEDS ORDERED: Ondansetron ODT 4 MG TAB ONE (10:54)
--- NOTE | 2017-12-31 12:14 | PDOC.FPRHP ---
- History of Present Illness Chief Complaint: nausea and vomiting and diarrhea History of Present Illness: Moisés Camarillo is a 32 year old F with a PMH of HTN, enlarged heart, and GERD who presented to the ED with a one day history of nausea, vomiting, and diarrhea. Symptoms started this morning around 5 am. Symptoms are associated with diffuse abdominal pain, crampy in nature. Rates pain as 10/10. Nothing relieves the pain, nothing makes it worse. She denies any fevers. Her BP on admission was 212/130. She has a history of htn and takes HCTZ 100 mg PO BID and amlodipine 10 mg PO daily at home. States that she did not take her medication this morning because of her symptoms. She denies any chest pain but does state that she feels a little short of breath. She denies any fever, chills , RLQ abd pain, dysuria. ED Course: In the ED, she was given hydralazine 10 mg X2, zofran 4 mg, reglan 10 mg, benadryl 25 mg, and 1 L NS - Allergies/Adverse Reactions Allergies Allergy/AdvReac Type Severity Reaction Status Date / Time No Known Allergies Allergy Verified 12/31/17 13:54 - Home Medications Medication Instructions Recorded Confirmed Type Amlodipine Besylate [amLODIPine 2.5 mg PO DAILY #30 tablet 12/08/17 Rx Besylate] Hydrochlorothiazide 25 mg PO DAILY #30 tab 12/08/17 Rx Ondansetron [Zofran ODT] 4 mg PO Q6H PRN #30 tab 12/08/17 Rx Pantoprazole Sodium [Protonix] 20 mg PO DAILY #30 tablet. 12/08/17 Rx Potassium Chloride [Klor-Con 10] 10 meq PO DAILY #30 tab 12/08/17 Rx - History PMHx: 1) HTN 2) "enlarged heart" 3) GERD 4) Bipolar Disorder 5) Schizophrenia PSHx: 1) Heart cath (age 2) 2) section X2 3) Tonsillectomy FHx: noncontributory Social: Smokes one ppd, denies alcohol use, denies drug use - Review of Systems General: reports: weight/appetite/sleep changes. denies: fever/chills, night sweats, fatigue Eyes: denies: eye pain, vision changes ENT: denies: nasal congestion, rhinorrhea Respiratory: reports: shortness of breath. denies: cough, congestion, exercise intolerance Cardiovascular: denies: chest pain, palpitation, edema, paroxysmal nocturnal dyspnea, orthopnea Gastrointestinal: reports: nausea, vomiting, diarrhea, abdominal pain. denies: constipation, GI bleeding Genitourinary: denies: incontinence, dysuria, polyuria, discharge Skin: denies: rashes, lesions, jaundice Musculoskeletal: denies: pain, tenderness, stiffness, swelling, arthritis/ arthralgias Neurological: denies: numbness, syncope, seizure, weakness Psychological: denies: anxiety, depression - Vital signs BP: 196/114 HR: 68 RR: 17 Tmax: 98.6 Pox: 100% on RA Wt: 59 kg - Physical Exam Constitutional: NAD, awake, alert and oriented, well developed HEENT: normocephalic and atraumatic, PERRLA, EOMI, conjunctiva clear, no scleral icterus, grossly normal vision, TM's clear and intact, grossly normal hearing, normal nasal mucosa, MMM, oropharynx clear Neck: supple, FROM, trachea midline, no LAD Chest: no-tender to palpation, no lesions Heart: RRR, normal S1/S2, no murmurs/rubs/gallops, pulses present, no edema Lungs: CTAB, no respiratory distress, good air movement, no rales/rhonchi, no wheezing, no retractions Abdomen: soft, bowel sounds present, no masses/distention -Abdomen: diffuse TTP, no rebound, no guarding Musculoskeletal: normal structure, normal tone, ROM grossly normal Neurological: no focal deficit, CN II-XII intact, normal sensation Skin: no rash/lesions, good turgor, capillary refill <2 seconds Heme/Lymphatic: no unusual bruising or bleeding, no purpura, no petechia Psychiatric: intact recent and remote memory -Psychiatric: constantly moving and dozing off during encounter FMR H&P: Results - Labs Result Diagrams: 12/31/17 07:40 12/31/17 07:40 Lab results: WBC 6.8 thou/uL (4.8-10.8) 12/31/17 07:40 Hgb 15.8 g/dL (12.0-16.0) 12/31/17 07:40 Hct 49.6 % (36.0-47.0) H 12/31/17 07:40 MCV 92.8 fL (78.0-98.0) 12/31/17 07:40 Plt Count 190 thou/uL (130-400) 12/31/17 07:40 Band Neuts % (Manual) 1 % (5-11) L 12/31/17 07:40 Sodium 138 mmol/L (136-145) 12/31/17 07:40 Potassium 3.5 mmol/L (3.5-5.1) 12/31/17 07:40 Chloride 106 mmol/L (98-107) 12/31/17 07:40 Carbon Dioxide 20 mmol/L (22-29) L 12/31/17 07:40 BUN 11 mg/dL (7.0-18.7) 12/31/17 07:40 Creatinine 0.90 mg/dL (0.6-1.1) 12/31/17 07:40 Glucose 130 mg/dL (70-105) H 12/31/17 07:40 Calcium 9.7 mg/dL (7.8-10.44) 12/31/17 07:40 Total Bilirubin 0.4 mg/dL (0.2-1.2) 12/31/17 07:40 AST 16 U/L (5-34) 12/31/17 07:40 ALT 13 U/L (8-55) 12/31/17 07:40 Alkaline Phosphatase 68 U/L (40-150) 12/31/17 07:40 Serum Total Protein 8.4 g/dL (6.0-8.3) H 12/31/17 07:40 Albumin 4.8 g/dL (3.5-5.0) 12/31/17 07:40 FMR H&P: A/P - Problem List (1) Hypertensive urgency Current Visit: No Status: Acute Code(s): I10 - ESSENTIAL (PRIMARY) HYPERTENSION (2) Gastroenteritis Current Visit: Yes Status: Acute Code(s): K52.9 - NONINFECTIVE GASTROENTERITIS AND COLITIS, UNSPECIFIED (3) HTN (hypertension) Current Visit: Yes Status: Chronic Code(s): I10 - ESSENTIAL (PRIMARY) HYPERTENSION (4) GERD (gastroesophageal reflux disease) Current Visit: No Status: Chronic Code(s): K21.9 - GASTRO-ESOPHAGEAL REFLUX DISEASE WITHOUT ESOPHAGITIS - Plan 1) Hypertensive Urgency: - Place on Tele, Observation status - HTN urgency likely secondary to medication noncompliance and acute illness - BPs in the ER range from 190s-210s systolic over 115-130 diastolic - Pt did not take home BP medication this morning - Checking EKG, trending trops, no active chest pain - Restart home medications, PRN IV labetalol and hydralazine - R/o alternative causes, Check troponin/ckmb, tsh, mag, phos, UDS - patient apparently has history of substance abuse, although she denied it today 2) Gastroenteritis - 1 day hx of nausea/vomiting and diarrhea - likely viral - no melena or BRBPR - zofran for nausea - no electrolyte abnormalities 3) HTN - resume home medications - see #1 4) Hx of enlarged heart - EKG showed signs of LVH 5) GERD - resume home medications CODE STATUS: FULL CODE VTE PPx: Lovenox Disposition/LOS: Place on obs/tele, like d/c home after hospital stay <2 midnights FMR H&P: Upper Level - Plan Date/Time: 12/31/17 7790 I, [], have evaluated this patient and agree with findings/plan as outlined by engineer internship resident. Pertinent changes/additions are listed here. Attending Addendum - Attending Addendum Date/Time: 12/31/17 4075 I personally evaluated the patient and discussed the management with Dr. Valle. I agree with the History, Examination, Assessment and Plan documented above with any addition or exceptions noted below- Briefly, this is a 32 year old female with h/o labile HTN who presented with 1 day h/o N/V, and abdominal pain. In ER noted to have markedly elevated BP that did not respons to medications. Patient denies any chest pain, DAWSON. PMH/PSH/All/Meds reviewed and agree with residentks documentation . Afebrile BP 140s/80s now Exam repeated by me and agree with residentks documentation. A/P: 1) Hypertensive urgency- restart home medications and adjust as indicated. Encouraged patient to schedule regular follow-up appointments.
[2017-12-31 12:36] LABS: Bilirubin Negative (Negative); Blood, Urine Trace (Negative); Clarity CLEAR (Clear); Glucose, Urine (Dipstick) 100 mg/dL (Negative); Leukocyte Negative (Negative); Nitrite Negative (Negative); Protein, Urine (Dipstick) Trace mg/dL (Neg-Trace); Specific Gravity, Urine 1.011 (1.002-1.036); Urobilinogen 0.2 mg/dL (0.2-1.0); pH, Urine 7.5 (5.0-9.0)
[2017-12-31 12:38] LABS: Bacteria/HPF None Seen HPF (None Seen); Hyaline Casts/LPF 0-3 HYALINE CAST LPF (0-3 Hyaline); RBC/HPF 0-3 HPF (0-3); Squamous Epithelial 0-3 HPF (0-3); WBC/HPF 0-3 HPF (0-3)
[2017-12-31] MEDS ORDERED: Ondansetron HCl/PF 4 MG/2 ML Vial IVP PRN ×2 (13:17→13:30)
[2017-12-31] MEDS ORDERED: Ondansetron ODT 4 MG TAB SL PRN (13:17)
[2017-12-31] MEDS ORDERED: Acetaminophen 325 MG TAB PO PRN ×2 (13:17→13:30)
[2017-12-31] MEDS ORDERED: Labetalol HCl 100 MG/20 ML VIAL SLOW IVP PRN (13:25)
[2017-12-31] MEDS ORDERED: hydrALAZINE 20 MG/ML VIAL SLOW IVP PRN (13:25)
[2017-12-31] MEDS ORDERED: Amlodipine 10 MG TAB PO SCH (13:30)
[2017-12-31 13:37] VITALS: BMI 22.8
[2017-12-31 13:59] LABS: Magnesium 1.7 mg/dL (1.6-2.6); Phosphorus 2.3 mg/dL (2.3-4.7)
[2017-12-31 14:05] LABS: CKMB 2.2 ng/mL (0-6.6); Troponin I Less than 0.010 ng/mL (< 0.028)
[2017-12-31 14:26] LABS: Amphetamine Not Detected (NotDetected); Barbiturates Screen Not Detected (NotDetected); Benzodiazepine Screen Not Detected (NotDetected); Cocaine Metabolite Screen Not Detected (NotDetected); Medtox Control Line Valid? VALID (VALID); Medtox Reader # READER 4; Methadone Not Detected (NotDetected); Methamphetamine Not Detected (NotDetected); Opiate Screen Not Detected (NotDetected); Oxycodone Screen Not Detected (NotDetected); Phencyclidine (PCP) Not Detected (NotDetected); THC/Cannabinoid Screen Not Detected (NotDetected); Tricyclic Screen Not Detected (NotDetected)
[2017-12-31] MEDS ORDERED: Magnesium Oxide 400 MG TAB PO SCH (16:30)
[2017-12-31] MEDS ORDERED: Hydrochlorothiazide 25 MG TAB PO SCH (16:45)
[2017-12-31] MEDS: Hydrochlorothiazide 25 MG TAB PO SCH (16:56)
[2018-01-01 06:05] LABS: Anion Gap 15 mmol/L (10-20); BUN (Urea Nitrogen) 9 mg/dL (7.0-18.7); Calc. Creatinine Clearance 76 mL/min (70-130); Calcium 10.1 mg/dL (7.8-10.44); Carbon Dioxide 27 mmol/L (22-29); Chloride 97 mmol/L (98-107); Estimated GFR-MDRD 80; Glucose 94 mg/dL (70-105); Sodium 136 mmol/L (136-145)
[2018-01-01 06:06] LABS: Potassium 2.7 mmol/L (3.5-5.1)
[2018-01-01 06:20] LABS: #Basophils 0.2 thou/uL (0.0-0.2); #Eosinphils 0.1 thou/uL (0.0-0.7); #Lymphocytes 3.7 thou/uL (1.20-3.40); #Monocytes 1.5 thou/uL (0.11-0.59); #Neutrophils 7.1 thou/uL (1.40-6.50); %Basophils 1.3 % (0.0-1.0); %Eosinophils 0.6 % (0.0-10.0); %Lymphocytes 29.7 % (21.0-51.0); %Monocytes 12.2 % (0.0-10.0); %Neutrophils 56.3 % (42.0-75.0); Hemoglobin 15.4 g/dL (12.0-16.0); Mean Corpuscular HGB CONC 33.6 g/dL (32.0-36.0); Mean Corpuscular Hemoglobin 30.1 pg (27.0-31.0); Mean Corpuscular Volume 89.6 fL (78.0-98.0); Mean Platelet Volume 8.6 fL (7.4-10.4); Platelet Count 200 thou/uL (130-400); RBC Distribution Width 12.3 % (11.5-14.5); Red Blood Cell (RBC) Count 5.12 mill/uL (4.20-5.40); White Blood Cell (WBC) Count 12.5 thou/uL (4.8-10.8)
--- NOTE | 2018-01-01 06:20 | PDOC.FM ---
- Subjective Subjective: Moisés Camarillo seen at bedside this morning. She has no complaints, states that she is feeling much better. Her nausea and vomiting have resolved and she is no longer having abd pain. She denies fever, chest pain, dyspnea, n/v/d/abd pain. - Objective MAR Reviewed: Yes Vital Signs & Weight: Vital Signs (12 hours) Temp Pulse Resp BP Pulse Ox 01/01/18 02:46 98.4 F 121 H 20 135/83 97 01/01/18 00:00 99.6 F 106 H 18 142/85 H 96 12/31/17 20:00 98.9 F 119 H 22 H 142/98 H 97 12/31/17 19:50 98.9 F 119 H 22 H Weight Weight 58.468 kg I&O: 12/30/17 12/31/17 01/01/18 06:59 06:59 06:59 Intake Total 882 Balance 882 Result Diagrams: 01/01/18 04:50 01/01/18 03:30 <Benjy Valle - Last Filed: 01/01/18 08:42> - Objective Vital Signs & Weight: Vital Signs (12 hours) Temp Pulse Resp BP Pulse Ox 01/01/18 12:13 97.7 F 95 18 133/84 100 01/01/18 08:40 98.1 F 97 20 01/01/18 08:15 98.1 F 97 20 138/84 95 Weight Weight 58.468 kg I&O: 12/31/17 01/01/18 01/02/18 06:59 06:59 06:59 Intake Total 882 Balance 882 Result Diagrams: 01/01/18 04:50 01/01/18 12:51 <Edna Palomino - Last Filed: 01/01/18 17:00> Phys Exam - Physical Examination Constitutional: NAD HEENT: moist MMs, sclera anicteric Neck: no JVD, supple, full ROM Respiratory: no wheezing, no rales, no rhonchi, clear to auscultation bilateral Cardiovascular: RRR, no significant murmur Gastrointestinal: soft, non-tender, no distention Musculoskeletal: no edema, pulses present Neurological: non-focal, normal sensation, moves all 4 limbs Psychiatric: normal affect, A&O x 3 Skin: no rash <Benjy Valle - Last Filed: 01/01/18 08:42> Dx/Plan (1) Hypertensive urgency Code(s): I10 - ESSENTIAL (PRIMARY) HYPERTENSION Status: Acute (2) Gastroenteritis Code(s): K52.9 - NONINFECTIVE GASTROENTERITIS AND COLITIS, UNSPECIFIED Status : Acute (3) HTN (hypertension) Code(s): I10 - ESSENTIAL (PRIMARY) HYPERTENSION Status: Chronic (4) GERD (gastroesophageal reflux disease) Code(s): K21.9 - GASTRO-ESOPHAGEAL REFLUX DISEASE WITHOUT ESOPHAGITIS Status: Chronic - Plan Plan: 1) Hypertensive Urgency: resolved - HTN urgency likely secondary to medication noncompliance and acute illness - BPs in the ER range from 190s-210s systolic over 115-130 diastolic - Pt did not take home BP medication the morning of presentation - EKG showed NSR with LVH, initial trop negative, no active chest pain - Restarted home medications, PRN IV labetalol and hydralazine - TSH is chronically low and has had normal work up in past, TSH is higher than it normal is - UDS negative, Mag and Phos normal - BP improved this morning, 135/83. Continue home medications, likely d/c today. 2) Gastroenteritis: improved - 1 day hx of nausea/vomiting and diarrhea - likely viral - no melena or BRBPR - zofran for nausea - no electrolyte abnormalities - improved, like d/c today with zofran 3) HTN - resume home medications - see #1 4) Hx of enlarged heart - EKG showed signs of LVH 5) GERD - resume home medications <Benjy Valle - Last Filed: 01/01/18 08:42> (1) Hypertensive urgency Code(s): I10 - ESSENTIAL (PRIMARY) HYPERTENSION Status: Acute (2) Gastroenteritis Code(s): K52.9 - NONINFECTIVE GASTROENTERITIS AND COLITIS, UNSPECIFIED Status : Acute (3) HTN (hypertension) Code(s): I10 - ESSENTIAL (PRIMARY) HYPERTENSION Status: Chronic (4) GERD (gastroesophageal reflux disease) Code(s): K21.9 - GASTRO-ESOPHAGEAL REFLUX DISEASE WITHOUT ESOPHAGITIS Status: Chronic <Edna Palomino - Last Filed: 01/01/18 17:00> Attending Addendum - Attending Addendum Date/Time: 01/01/18 2040 I personally evaluated the patient and discussed the management with Dr. Valle. I agree with the History, Examination, Assessment and Plan documented above with any addition or exceptions noted below- Patient without complaints. No further N/V or abdominal pain. Afebrile VSS. A/P: 1) Hypertensive urgency- resolved; BP in acceptable range with resumption of home regimen. Plan to d/c home today. Encouraged follow-up with clinic in next 1-2 weeks. <Edna Palomino - Last Filed: 01/01/18 17:00>
[2018-01-01] MEDS ORDERED: Potassium Chloride 20 MEQ TAB PO SCH ×3 (06:30→13:45)
[2018-01-01] MEDS: Hydrochlorothiazide 25 MG TAB PO SCH (08:45)
[2018-01-01] MEDS ORDERED: Amlodipine 10 MG TAB PO SCH ×2 (09:00)
[2018-01-01] MEDS ORDERED: Enoxaparin Sodium 40 MG/0.4 ML SYRINGE SC SCH (09:00)
[2018-01-01 09:44] LABS: Potassium 2.7 mmol/L (3.5-5.1)
[2018-01-01 12:34] VITALS: BP 133/84; TEMP 97.7
[2018-01-01 13:10] LABS: Potassium 3.2 mmol/L (3.5-5.1)
--- NOTE | 2018-01-02 06:08 | DIS-2 ---
DATE OF ADMISSION: 12/31/2017 DATE OF DISCHARGE: 01/01/2018 ADMITTING ATTENDING: Edna Palomino M.D. DISCHARGE ATTENDING: Edna Palomino M.D. RESIDENT: Benjy Valle M.D. CONSULTATIONS: None. PROCEDURES: None. PRIMARY DIAGNOSIS: Hypertensive urgency. SECONDARY DIAGNOSES: 1. Hypertension. 2. Gastroesophageal reflux disease. 3. Gastroenteritis. 4. History of cardiomegaly. DISCHARGE MEDICATIONS: Continue home medications includin. Potassium chloride 10 mEq p.o. daily. 2. Hydrochlorothiazide 25 mg p.o. daily. NEW HOME MEDICATIONS: 1. Amlodipine 10 mg p.o. daily. 2. Pantoprazole 40 mg p.o. daily. 3. Zofran 4 mg p.o. q.6 hours p.r.n. HISTORY OF PRESENT ILLNESS AND HOSPITAL COURSE: Moisés Camarillo is a 32-year-old female with a past medical history of hypertension, cardiomegaly, and GERD who presented to the ED with 1 day history of nausea, vomiting, diarrhea. Symptoms started the morning of admission around 5:00 a.m. Symptoms we re associated with diffuse abdominal pain that was crampy in nature, rated the pain 10/10. Nothing r elieves the pain and nothing made it worse. She denied any fevers. Her blood pressure on admission was 212/130. She has a history of hypertension and takes hydrochlorothiazide unknown dose and amlodi pine 10 mg p.o. daily at home. She states that she did not take her medication the morning of admiss ion because she was having nausea, vomiting and diarrhea. She denied any chest pain, but stated that she did feel a little short of breath. She denied any fevers, chills, right lower quadrant abdomina l pain or dysuria. In the ED, she was given hydralazine 10 mg x2, Zofran, Reglan, Benadryl, and [address] li ter of normal saline. This did not improve her blood pressure and so she was placed on tele observat ion for overnight observation for a diagnosis of hypertensive urgency, likely secondary to medication noncompliance and acute illness. Troponins were checked and were negative. EKG was checked and steph wed no acute changes. The patient never had any active chest pain. She was restarted on her home me dications and provided p.r.n. IV antihypertensives. She was also provided Zofran for her nausea and vomiting. Her blood pressure slowly down trended over the first night of her admission and on the mo rning of her admission her blood pressure was well controlled, ranging from 133-138 systolic and 83-8 5 diastolic. The patient was completely asymptomatic. Her nausea and vomiting have resolved as well with Zofran and she was ready to go and cleared for discharge on 01/01/2018. The patient was instru cted to continue home medication including amlodipine and hydrochlorothiazide. It was also recommend ed that she continue medication management for GERD as well as her nausea medicine for her acute cathy roenteritis. The patient's potassium was low on the day of discharge 2.7, however, this was suppleme nted, got as high as 3.2, it was resupplemented with 40 mEq of KCl. After that, the patient was denton red for discharge with close follow up with [facility]. She was scheduled for an appointme nt with Dr. Mckee on 01/04/2018 at 10:00 a.m. The patient stated that she would take her medicatio ns as prescribed. DISPOSITION: Stable. The patient should do well if she takes her medications as she had good contro l of her hypertension while taking them. She should also follow up with [facility] so that she can have a recheck of her potassium as well as a blood pressure check. DISCHARGE INSTRUCTIONS: 1. Location: Home. 2. Diet: Heart healthy. 3. Activity: As tolerated. 4. Followup: Follow up with [facility], an appointment has already been made.
== END 2018-01-01 14:44 | disposition home or self-care (01) ==
LOC: ERS 06:46 → 2SW 12:15
PROVIDERS: ADMIT Family Medicine; ATTEND Family Medicine
DX: I16.0 Hypertensive urgency (principal); K21.9 Gastro-esophageal reflux disease without esophagitis; K52.9 Noninfective gastroenteritis and colitis, unspecified; Z79.899 Other long term (current) drug therapy
CPT/HCPCS: 36415; 80048; 80053; 80306; 81003; 81015; 82553; 83735; 84100; 84443; 84484; 84703; 85025; 93005; 96365; 96366; 96375; 96376; G0378; J0360; J1200; J1650; J2405; J2765; Q0162

== ENCOUNTER 2019-04-01 19:49 | Emergency (ER) | payer OTHER, SELFPAY ==
[2019-04-01 21:24] LABS: Bacteria/HPF 1+ HPF (None Seen); Bilirubin Negative (Negative); Blood, Urine Negative (Negative); Clarity Turbid (Clear); Glucose, Urine (Dipstick) Normal (Negative); Leukocyte 75 Leu/uL (Negative); Nitrite Negative (Negative); Protein, Urine (Dipstick) 20 mg/dL (Neg-Trace)
[2019-04-01] MEDS ORDERED: Ketorolac Tromethamine 30 MG/ML VIAL ONE (22:08)
== END 2019-04-01 22:20 | disposition home or self-care (01) ==
LOC: ERS 19:49
DX: S39.012A Strain of muscle, fascia and tendon of lower back, initial encounter (principal); R35.0 Frequency of micturition; K21.9 Gastro-esophageal reflux disease without esophagitis; I10 Essential (primary) hypertension; F17.210 Nicotine dependence, cigarettes, uncomplicated; X50.0XXA Overexertion from strenuous movement or load, initial encounter
CPT/HCPCS: 81003; 81015; 87086; 96372; 99283; J1885

== ENCOUNTER 2019-09-10 10:36 | Emergency (ER) | payer OTHER, SELFPAY | END 2019-09-10 11:09 | disposition home or self-care (01) | LOC: ERS 10:36 | DX: J00 Acute nasopharyngitis [common cold] (principal); K21.9 Gastro-esophageal reflux disease without esophagitis; I10 Essential (primary) hypertension; F20.9 Schizophrenia, unspecified; F41.9 Anxiety disorder, unspecified; F31.9 Bipolar disorder, unspecified | CPT/HCPCS: 99282 ==

== ENCOUNTER 2019-11-21 13:07 | Observation (INO) | payer SELFPAY ==
[2019-11-21 13:51] LABS: Pregnancy Test - Urine (BHCG) POSITIVE (Negative)
[2019-11-21 13:52] LABS: Pregu Control Background? CLEAR/WHITE (CLR/WHITE); Pregu Control Bar Appear? YES (CONTROL BAR); Specific Gravity 1.027 (1.002-1.036)
[2019-11-21 13:56] LABS: Bilirubin Negative (Negative); Blood, Urine 3+ (Negative); Clarity Turbid (Clear); Glucose, Urine (Dipstick) Normal (Negative); Leukocyte 75 Leu/uL (Negative); Nitrite Negative (Negative); Protein, Urine (Dipstick) 70 mg/dL (Neg-Trace); Squamous Epithelial 21-50 HPF (0-3); Urobilinogen Normal mg/dL (Less than 2)
[2019-11-21 14:02] LABS: Bacteria/HPF 1+ HPF (None Seen)
[2019-11-21 14:03] LABS: Trichomonas/HPF 1+ HPF (None Seen)
[2019-11-21] MEDS ORDERED: Succinylcholine Chloride 20 MG/ML 10 ml SYRINGE FS ONE (14:03)
[2019-11-21] MEDS ORDERED: Ondansetron PF 4 MG/2 ML Vial ONE (14:03)
[2019-11-21] MEDS ORDERED: Glycopyrrolate 0.2 MG/ML 5 ML SYRINGE ONE (14:03)
[2019-11-21] MEDS ORDERED: Rocuronium Bromide 10 MG/ML (10ML VIAL) ONE (14:03)
[2019-11-21] MEDS ORDERED: Dexamethasone 20 MG/5 ML VIAL ONE (14:03)
[2019-11-21] MEDS ORDERED: PROPOFOL 200 MG/20 ML VIAL ONE (14:03)
[2019-11-21] MEDS ORDERED: Lidocaine 1% PF 5 ML VIAL ONE (14:03)
[2019-11-21 14:49] LABS: #Basophils 0.1 thou/uL (0.0-0.2); #Eosinphils 0.1 thou/uL (0.0-0.7); #Lymphocytes 2.7 thou/uL (1.20-3.40); #Monocytes 0.6 thou/uL (0.11-0.59); #Neutrophils 3.4 thou/uL (1.40-6.50); %Eosinophils 2.1 % (0.0-10.0); %Lymphocytes 38.2 % (21.0-51.0); %Monocytes 8.9 % (0.0-10.0); %Neutrophils 48.8 % (42.0-75.0); Hemoglobin 12.8 g/dL (12.0-16.0); Mean Corpuscular HGB CONC 32.2 g/dL (32.0-36.0); Mean Corpuscular Hemoglobin 27.8 pg (27.0-31.0); Mean Corpuscular Volume 86.5 fL (78.0-98.0); Mean Platelet Volume 7.8 fL (7.4-10.4); Platelet Count 191 thou/uL (130-400); RBC Distribution Width 11.8 % (11.5-14.5); Red Blood Cell (RBC) Count 4.61 mill/uL (4.20-5.40)
--- NOTE | 2019-11-21 14:54 | ULT ---
Exam: Pelvic ultrasound HISTORY: and vaginal bleeding. COMPARISON: None TECHNIQUE: Multiple grayscale and color Doppler images were obtained in a transabdominal and transvag inal pelvic ultrasound. Spectral analysis of the Doppler waveforms of the ovaries were performed. FINDINGS: CERVIX: Grossly normal appearance. UTERUS: Normal in size without focal abnormality. ENDOMETRIAL STRIPE: 16 mm which is prominent in thickness. No fluid collection is seen in the endomet rial canal to suggest an intrauterine gestation. No fluid is seen in the endometrial canal. Trace free fluid is present. RIGHT OVARY: There are 2 anechoic cystic structures seen in the right ovary largest measuring 2 cm lynne ggesting small ovarian cysts. Flow is demonstrated in the right ovary. There is a complex heterogeneous masslike structure seen between the right ovary and the uterus with a rounded area of i ncreased echogenicity and central lower area of echogenicity. Within the lower area of echogenicity, Doppler evaluation does demonstrate flow. Findings could potentially represent an ectop ic in the right adnexa. LEFT OVARY: Normal flow, without focal mass. IMPRESSION: 1. No fluid collection is seen in the endometrial canal to suggest an intrauterine gestation. There i s a complex masslike structure which abuts the right ovary and is located between the right ovary and the uterus with flow demonstrated within the central portion of this complex structure. This find ing is suspicious for an ectopic . Correlation with quantitative beta hCG level is recommended, and OB\Pressing Machine Tender consultation is also recommended. 2. Above findings discussed Dr. Charles in the emergency department on 11/21/2019 at 1439 hours.
[2019-11-21] MEDS ORDERED: Fentanyl 100 MCG/2 ML VIAL ONE ×3 (21:13→21:46)
[2019-11-21] MEDS ORDERED: fentaNYL Citrate/PF 2,000 MCG in Sodium Chloride 0.9% 60 ML IV PRN (21:27)
[2019-11-21] MEDS ORDERED: diphenhydrAMINE 25 MG CAP PO PRN (21:27)
[2019-11-21] MEDS ORDERED: diphenhydrAMINE 50 MG/ML VIAL IVP PRN (21:27)
[2019-11-21] MEDS ORDERED: Ondansetron PF 4 MG/2 ML Vial IVP PRN (21:27)
[2019-11-21] MEDS ORDERED: Zolpidem Tartrate 5 MG TAB PO PRN (21:27)
[2019-11-21] MEDS ORDERED: Ketorolac Tromethamine 30 MG/ML VIAL IVP PRN (21:27)
[2019-11-21] MEDS ORDERED: diphenhydrAMINE 50 MG/ML VIAL IM PRN (21:27)
[2019-11-21] MEDS ORDERED: Naloxone HCl 0.4 mg/ml Vial IV PRN (21:27)
[2019-11-21] MEDS ORDERED: Promethazine HCl 25 MG/ML VIAL IM PRN ×2 (21:27→21:28)
[2019-11-21] MEDS ORDERED: Promethazine HCl 25 MG/ML VIAL SLOW IVP PRN (21:28)
[2019-11-21] MEDS ORDERED: Ondansetron HCl/PF 4 MG/2 ML Vial IVP PRN (21:28)
[2019-11-21] MEDS ORDERED: HYDROmorphone 2 MG/ML VIAL SLOW IVP PRN (21:28)
[2019-11-21] MEDS ORDERED: Communication Order-Pharmacy FS SCH (21:30)
[2019-11-21] MEDS ORDERED: HYDROmorphone 0.5 MG/0.5 ML SYRINGE ONE ×2 (21:34→22:00)
[2019-11-21] MEDS ORDERED: HYDROcodone/Acetaminophen 5/325 mg Tablet PO PRN (22:20)
--- NOTE | 2019-11-22 00:31 | PDOC.EVN ---
Event Note - Event Note Event Note: POD1 Resting comfortable. VAG Abdomen is soft. Pain controlled with DORMITORY KEEPER. Plan: Cont. routine post op care
--- NOTE | 2019-11-22 01:15 | OP ---
DATE OF PROCEDURE: 11/21/2019 PREOPERATIVE DIAGNOSIS: Suspected ectopic . POSTOPERATIVE DIAGNOSIS: Ectopic , right fallopian tube. PROCEDURES: 1. Mini-laparotomy. 2. Right salpingectomy. FREE LANCE MODEL SURGEON: Vero Fam DO ANESTHESIA: General endotracheal. ESTIMATED BLOOD LOSS: Less than 100 mL. COMPLICATIONS: None. FINDINGS: 1. Small midline uterus. 2. Small amount of blood in the cul-de-sac. 3. Unruptured ectopic of the right fallopian tube. 4. Normal left tube and left ovary. PROPHYLAXIS: Ancef 2 g prior to incision. BRIEF PATIENT DESCRIPTION: Ms. Camarillo is a 33-year-old black G4, P2, with a last menstrual period reported as October 03, who presented to the ER complaining of spotting and bleeding. She states that she did note that she was , but had no care. She also reported associated right lower quadrant pain. Evaluation in the emergency room demonstrated a quantitative beta-hCG of slightly over 6000, and an ultrasound which showed a suspected gestational sac with small pole and heart tones noted. These findings were discussed with the patient, and informed consent was obtained, so that she could be taken to the operating room for a minilap 2* to her history of 2 previous c-sections. The risks of the procedure including anesthesia, bleeding, infection, as well as damage to adjacent organs, requiring repair, removal, or transfusion were discussed with her in detail, and she wished to proceed. TECHNIQUE IN DETAIL: After good general endotracheal anesthesia was achieved, the patient was prepped and draped in the dorsal lithotomy position in the [facility]. A weighted speculum was inserted in the vagina, and a single-tooth tenaculum was used to grasp the cervix. A Hulka tenaculum was placed into the uterine cavity. The single-tooth tenaculum was then removed. A Razo catheter had been placed during the prep. The legs were brought down, and the abdomen was prepped in the usual sterile fashion. Due to the fact that the patient had two previous sections, decision was made to proceed with mini-laparotomy. Skin incision was made through a pre-existing surgical scar and was carried down into the abdominal cavity. Self-retaining retractor was placed. The pelvis was explored, and at that time , it could be seen that there was a large unruptured ectopic in the right fallopian tube. The fimbriated end on the right side was adhesed deep in the pelvis, and these adhesions were lysed using the Metzenbaum scissors. Once the tube could be brought up, the LigaSure was then used to remove the tube from the underlying mesosalpinx. Good hemostasis was achieved using the LigaSure device. The left tube and ovary were seen to be normal prior to the excision of the tube. The pelvis was then thoroughly irrigated using warm saline. The excisional area was again noted to be dry. The self-retaining retractor and wet lap packs were then removed. The fascia was closed using 2 sutures of Vicryl, brought to the midline in an alternating running locking fashion. The subcutaneous tissue was thoroughly irrigated and made dry using Bovie coagulation technique. The subcutaneous tissue was approximated using interrupted plain gut suture. The skin was closed in a subcuticular stitch using Monocryl. Dermabond was then placed across the wound , and dressing was then placed as well. The patient tolerated the procedure well. Sponge, lap, and needle counts were correct. Job ID: [id number] [facility]
[2019-11-22] MEDS: Simethicone Chewable 80 MG TAB PO PRN ×2 (06:24→12:06)
[2019-11-22] MEDS: Lactated Ringer's 1,000 ML IV SCH ×3 (06:25→20:34)
[2019-11-22 06:35] LABS: #Lymphocytes 1.1 thou/uL (1.20-3.40); #Monocytes 0.3 thou/uL (0.11-0.59); #Neutrophils 11.1 thou/uL (1.40-6.50); %Basophils 0.2 % (0.0-1.0); %Eosinophils 0.1 % (0.0-10.0); %Lymphocytes 8.6 % (21.0-51.0); %Monocytes 2.6 % (0.0-10.0); %Neutrophils 88.6 % (42.0-75.0); Hemoglobin 12.5 g/dL (12.0-16.0); Mean Corpuscular HGB CONC 33.3 g/dL (32.0-36.0); Mean Corpuscular Hemoglobin 28.7 pg (27.0-31.0); Mean Platelet Volume 8.4 fL (7.4-10.4); Platelet Count 192 thou/uL (130-400); RBC Distribution Width 11.9 % (11.5-14.5); Red Blood Cell (RBC) Count 4.35 mill/uL (4.20-5.40); White Blood Cell (WBC) Count 12.5 thou/uL (4.8-10.8)
[2019-11-22 09:48] VITALS: BMI 35.9
[2019-11-22] MEDS: Calcium Carbonate 500 MG ChewTAB PO PRN (14:06)
[2019-11-22] MEDS: HYDROcodone/Acetaminophen 5/325 mg Tablet PO PRN ×2 (17:42→22:10)
[2019-11-22] MEDS: Ibuprofen 800 MG TAB PO SCH (22:09)
[2019-11-23] MEDS: Calcium Carbonate 500 MG ChewTAB PO PRN (03:15)
[2019-11-23] MEDS: Ibuprofen 800 MG TAB PO SCH (06:04)
[2019-11-23] MEDS: HYDROcodone/Acetaminophen 5/325 mg Tablet PO PRN (06:05)
[2019-11-23 07:35] VITALS: BP 111/70; TEMP 98.6
--- NOTE | 2019-11-24 13:39 | DIS ---
DATE OF ADMISSION: 11/21/2019 DATE OF DISCHARGE: 11/23/2019 TIME OF SERVICE: 0645 hours. HISTORY: Ms. Camarillo is resting comfortably. She is postoperative day #1 to #2 of a mini-laparotomy for ectopic on the right with a right salpingectomy performed by Dr. Waldron with EBL of less than 100 and unruptured ectopic. PHYSICAL EXAMINATION: VITAL SIGNS: T-max 99.1, temperature 98.5, pulse 71, respirations 18, and blood pressure 109/56. Urine output is greater than 1000 per 12-hour shift. HEENT: Within normal limits. LUNGS: Clear to auscultation bilaterally. HEART: Regular rhythm. ABDOMEN: Soft, nontender. Bowel sounds in all 4 quadrants. Incision, intact and dry. EXTREMITIES: No clubbing, cyanosis, or edema. LABORATORY DATA: Hematocrit postoperatively went from 39.9 to 37.5. IMPRESSION: Doing well, status post laparotomy with right salpingectomy for unruptured ectopic . PLAN: Discharge to home. Tylenol No. 3, ibuprofen p.r.n. Follow up with [facility] [place] or own DISTRICT RECRUITER in 1 and 4 weeks. Job ID: [id number]
--- NOTE | 2019-11-26 11:31 | PDOC.EVN ---
Event Note - Event Note Event Note: Pathology reviewed. It returns c/w ectopic .
== END 2019-11-23 08:27 | disposition home or self-care (01) ==
LOC: ERS 13:07 → SDC/OP 22:43 → 3SE 23:23
PROVIDERS: ADMIT Obstetrics & Gynecology; ATTEND Obstetrics & Gynecology
PROC: 10T20ZZ Resection of Products of Conception, Ectopic, Open Approach (ICD-10-PCS; principal; 2019-11-21)
DX: O00.101 Right tubal pregnancy without intrauterine pregnancy (principal); O08.1 Delayed or excessive hemorrhage following ectopic and molar pregnancy; K21.9 Gastro-esophageal reflux disease without esophagitis; I10 Essential (primary) hypertension; F17.210 Nicotine dependence, cigarettes, uncomplicated; F41.9 Anxiety disorder, unspecified; F31.9 Bipolar disorder, unspecified; F20.9 Schizophrenia, unspecified; Z79.899 Other long term (current) drug therapy
CPT/HCPCS: 36415; 76856; 81003; 81015; 81025; 84702; 85025; 85027; 86850; 86900; 86901; 88305; 96361; 96374; 96375; G0378; J1100; J1170; J1885; J2001; J2405; J2704; J3010; J3490

== ENCOUNTER 2020-08-07 20:45 | Emergency (ER) | payer SELFPAY ==
--- NOTE | 2020-08-07 23:41 | RAD ---
3 views right foot: 08/07/2020 COMPARISON: None HISTORY: Right toe pain FINDINGS: No fracture or dislocation. No radiopaque foreign body or subcutaneous gas. IMPRESSION: No acute findings.
[2020-08-08] MEDS ORDERED: Ibuprofen 800 MG TAB ONE (00:51)
== END 2020-08-08 00:57 | disposition home or self-care (01) ==
LOC: ERS 20:45
DX: L03.115 Cellulitis of right lower limb (principal); B35.3 Tinea pedis; I10 Essential (primary) hypertension; K21.9 Gastro-esophageal reflux disease without esophagitis; F17.210 Nicotine dependence, cigarettes, uncomplicated

== ENCOUNTER 2021-02-25 14:49 | Emergency (ER) | payer SELFPAY ==
[2021-02-25] MEDS ORDERED: Ketorolac Tromethamine 30 MG/ML VIAL ONE (18:15)
[2021-02-25] MEDS ORDERED: HYDROcodone/Acetaminophen 5/325 mg Tablet ONE (18:15)
== END 2021-02-25 18:30 | disposition home or self-care (01) ==
LOC: ERS 14:49
DX: M54.5 Low back pain (principal); I10 Essential (primary) hypertension; K21.9 Gastro-esophageal reflux disease without esophagitis; F17.210 Nicotine dependence, cigarettes, uncomplicated
CPT/HCPCS: 96372; 99283; J1885

== ENCOUNTER 2021-03-13 16:36 | Emergency (ER) | payer SELFPAY ==
[2021-03-13 17:10] LABS: #Basophils 0.1 thou/uL (0.0-0.2); #Eosinphils 0.2 thou/uL (0.0-0.7); #Lymphocytes 3.5 thou/uL (1.20-3.40); #Monocytes 0.8 thou/uL (0.11-0.59); %Basophils 0.6 % (0.0-1.0); %Eosinophils 2.7 % (0.0-10.0); %Lymphocytes 40.4 % (21.0-51.0); %Monocytes 9.6 % (0.0-10.0); %Neutrophils 46.7 % (42.0-75.0); Hemoglobin 12.5 g/dL (12.0-16.0); Mean Corpuscular HGB CONC 32.2 g/dL (32.0-36.0); Mean Corpuscular Hemoglobin 28.1 pg (27.0-31.0); Mean Corpuscular Volume 87.1 fL (78.0-98.0); Platelet Count 233 thou/uL (130-400); RBC Distribution Width 12.1 % (11.5-14.5); Red Blood Cell (RBC) Count 4.47 mill/uL (4.20-5.40); White Blood Cell (WBC) Count 8.6 thou/uL (4.8-10.8)
[2021-03-13 17:32] LABS: Bilirubin Negative (Negative); Blood, Urine Negative (Negative); Clarity Clear (Clear); Glucose, Urine (Dipstick) Normal (Negative); Ketone, Urine Negative (Negative); Leukocyte Negative Leu/uL (Negative); Nitrite Negative (Negative); Protein, Urine (Dipstick) 20 mg/dL (Neg-Trace); Specific Gravity, Urine 1.029 (1.002-1.036)
== END 2021-03-13 19:55 | disposition home or self-care (01) ==
LOC: ERS 16:36
DX: O20.9 Hemorrhage in early pregnancy, unspecified (principal); O09.521 Supervision of elderly multigravida, first trimester; O10.911 Unspecified pre-existing hypertension complicating pregnancy, first trimester; O99.331 Smoking (tobacco) complicating pregnancy, first trimester; F17.210 Nicotine dependence, cigarettes, uncomplicated; O99.611 Diseases of the digestive system complicating pregnancy, first trimester; K21.9 Gastro-esophageal reflux disease without esophagitis; Z3A.01 Less than 8 weeks gestation of pregnancy
CPT/HCPCS: 36415; 76856; 81003; 84702; 85025; 86900; 86901; 93976

== ENCOUNTER 2021-04-14 08:58 | Emergency (ER) | payer SELFPAY ==
[2021-04-14] MEDS ORDERED: Morphine 4 MG/ML VIAL ONE (09:39)
[2021-04-14] MEDS ORDERED: Ondansetron PF 4 MG/2 ML Vial ONE (09:39)
[2021-04-14 09:49] LABS: #Basophils 0.1 thou/uL (0.0-0.2); #Eosinphils 0.1 thou/uL (0.0-0.7); #Lymphocytes 2.3 thou/uL (1.20-3.40); #Monocytes 0.7 thou/uL (0.11-0.59); %Basophils 1.9 % (0.0-1.0); %Eosinophils 1.3 % (0.0-10.0); %Lymphocytes 37.1 % (21.0-51.0); %Monocytes 11.2 % (0.0-10.0); %Neutrophils 48.5 % (42.0-75.0); Mean Corpuscular HGB CONC 31.6 g/dL (32.0-36.0); Mean Corpuscular Hemoglobin 27.4 pg (27.0-31.0); Mean Corpuscular Volume 86.8 fL (78.0-98.0); Mean Platelet Volume 7.9 fL (7.4-10.4); Platelet Count 273 thou/uL (130-400); RBC Distribution Width 12.4 % (11.5-14.5); Red Blood Cell (RBC) Count 4.39 mill/uL (4.20-5.40); White Blood Cell (WBC) Count 6.3 thou/uL (4.8-10.8)
[2021-04-14 09:55] LABS: Bilirubin Negative (Negative); Blood, Urine 3+ (Negative); Clarity Turbid (Clear); Glucose, Urine (Dipstick) Normal (Negative); Ketone, Urine Negative (Negative); Leukocyte 75 Leu/uL (Negative); Nitrite Negative (Negative); Protein, Urine (Dipstick) 30 mg/dL (Neg-Trace); RBC/HPF Greater than 50 HPF (0-3); Specific Gravity, Urine 1.008 (1.002-1.036); Urobilinogen Normal mg/dL (Less than 2); WBC/HPF Greater than 50 HPF (0-3); pH, Urine 5.5 (5.0-9.0)
[2021-04-14 09:56] LABS: Bacteria/HPF 1+ HPF (None Seen)
[2021-04-14 10:17] LABS: ALT (SGPT) 15 U/L (8-55); AST (SGOT) 11 U/L (5-34); Alkaline Phosphatase 65 U/L (40-110); Anion Gap 12 mmol/L (10-20); BUN (Urea Nitrogen) 8 mg/dL (7.0-18.7); Bilirubin, Total 0.3 mg/dL (0.2-1.2); Calc. Creatinine Clearance 0 mL/min (70-130); Calcium 8.8 mg/dL (7.8-10.44); Carbon Dioxide 19 mmol/L (22-29); Chloride 109 mmol/L (98-107); Globulin 3.1 g/dL (2.4-3.5); Glucose 96 mg/dL (70-105); Lipase 18 U/L (8-78); Potassium 3.9 mmol/L (3.5-5.1); Protein, Total 7.1 g/dL (6.0-8.3); Sodium 136 mmol/L (136-145)
[2021-04-14] MEDS ORDERED: cefTRIAXone\\ROCEPHIN 1 GM VIAL ONE (10:27)
== END 2021-04-14 13:10 | disposition home or self-care (01) ==
LOC: ERS 08:58
DX: O00.80 Other ectopic pregnancy without intrauterine pregnancy (principal); N39.0 Urinary tract infection, site not specified; I10 Essential (primary) hypertension; F17.210 Nicotine dependence, cigarettes, uncomplicated
CPT/HCPCS: 36415; 76856; 80053; 81003; 81015; 83690; 84702; 85025; 87086; 93976; 96365; 96375; J0696; J2270; J2405

== ENCOUNTER 2021-06-11 21:19 | Emergency (ER) | payer SELFPAY ==
[2021-06-11] MEDS ORDERED: Bacitracin 1 PK ONE (21:51)
[2021-06-11] MEDS ORDERED: Cephalexin 250 MG CAP ONE (22:05)
[2021-06-11] MEDS ORDERED: Sulfameth/Trimethoprim DS 800-160mg TAB ONE (22:05)
[2021-06-11] MEDS ORDERED: Ibuprofen 800 MG TAB ONE (22:05)
== END 2021-06-11 22:10 | disposition home or self-care (01) ==
LOC: ERS 21:19
DX: L03.115 Cellulitis of right lower limb (principal); I10 Essential (primary) hypertension; K21.9 Gastro-esophageal reflux disease without esophagitis; F17.210 Nicotine dependence, cigarettes, uncomplicated
CPT/HCPCS: 99283

== ENCOUNTER 2021-07-11 21:29 | Emergency (ER) | payer SELFPAY ==
[2021-07-12 16:51] LABS: SARS-CoV-2 PCR by NAA Not Detected (NotDetected)
== END 2021-07-11 23:05 | disposition home or self-care (01) ==
LOC: ERS 21:29
DX: R05.9 Cough, unspecified (principal); I10 Essential (primary) hypertension; F17.210 Nicotine dependence, cigarettes, uncomplicated; Z20.822 Contact with and (suspected) exposure to COVID-19
CPT/HCPCS: 71045; 93005; U0003; U0005

== ENCOUNTER 2022-02-15 22:00 | Emergency (ER) | payer SELFPAY | END 2022-02-15 23:25 | disposition home or self-care (01) | LOC: ERS 22:00 | DX: I10 Essential (primary) hypertension (principal); F17.210 Nicotine dependence, cigarettes, uncomplicated | CPT/HCPCS: 99283 ==

== ENCOUNTER 2022-09-10 23:58 | Emergency (ER) | payer SELFPAY | END 2022-09-11 02:04 | disposition home or self-care (01) | LOC: ERS 23:58 | DX: L23.9 Allergic contact dermatitis, unspecified cause (principal); I10 Essential (primary) hypertension; K21.9 Gastro-esophageal reflux disease without esophagitis | CPT/HCPCS: 99282 ==